=== PATIENT | male | born 1965 | race African-American/Black ===

== ENCOUNTER 2017-01-02 18:46 | Observation (INO) ==
[2017-01-02] MEDS ORDERED: Ondansetron 4 MG/2 ML VIAL IVP ONE (18:53)
--- NOTE | 2017-01-02 18:58 | Emergency Department Note ---
Disposition Clinical Impression: Cerebrovascular accident Qualifiers: CVA mechanism: unspecified Qualified Code(s): I63.9 - Cerebral infarction, unspecified Disposition: Admitted As Inpatient Condition: Undetermined Time of Disposition: 20:01 Neuro HPI - General Chief Complaint: ED Weakness Stated Complaint: Neuro Symptoms 2 hours ago Time Seen by Provider: 01/02/17 18:49 Source: patient Mode of arrival: ambulatory Limitations: no limitations Nursing Notes Reviewed: Yes Vital Signs Reviewed: Yes - History of Present Illness HPI Narrative: 51-year-old male with history of HIV on all of his medications as prescribed, hypertension, arrives to [facility] emergency department complaining of weakness on the left side and it started at 5 PM. The patient also states that there is some numbness associated with it. The patient states this started at 5 PM exactly. The patient denies any slurring words, confusion. The patient admits to a small amount of headache and nausea with this. The patient states that he thinks he had one of these in the past and was worked up at [facility] but denies any TPA or actual stroke. Onset of Symptoms Date: 01/02/17 Onset of Symptoms Time: 17:00 Symptom Onset Unknown: No Location: left face, left arm, left leg History of same: Yes Severity: mild Quality: weakness, numbness, tingling Symptoms Improving: No Improves with: none Worsens with: none Context: sudden onset On Anticoagulants: No Associated symptoms: Reports: nausea/vomiting Treatments Prior to Arrival: none - Related Data Allergies/Adverse Reactions: Allergies Allergy/AdvReac Type Severity Reaction Status Date / Time cephalexin Allergy Hives Verified 01/02/17 19:28 Sulfa (Sulfonamide Allergy Hives Verified 01/02/17 19:29 Antibiotics) sulfamethoxazole Allergy Hives Verified 01/02/17 19:27 [From Bactrim] trimethoprim [From Bactrim] Allergy Hives Verified 01/02/17 19:27 All systems ED: reviewed and negative except as stated. Constitutional: Reports: weakness. Denies: fever, chills, weight change Cardiovascular: Denies: chest pain, palpitations, dyspnea on exertion, edema, syncope Respiratory: Denies: cough, dyspnea, wheezes, hemoptysis, stridor Gastrointestinal: Reports: nausea. Denies: abdominal pain, vomiting, diarrhea, constipation, hematemesis, melena, hematochezia Genitourinary: Denies: urgency, dysuria, frequency, hematuria Musculoskeletal: Denies: back pain, neck pain, arthralgia, myalgia Integumentary: Denies: rash, abrasion, lesions Neurological: Reports: numbness. Denies: headache, weakness, paresthesias, confusion, abnormal gait, vertigo Past Medical History - Past Medical History Attestation: Yes The following information was validated with the patient. Source: patient Medical history: Reports: HIV/AIDS, hypertension Surgical history: Reports: non-contributory Psychiatric history: Reports: no psych history - Social History Smoking Status: Never smoker Alcohol use: Reports: none Drug use: Reports: none Physical Exam - General Limitations: no limitations General appearance: alert, in no apparent distress - Head Head exam: atraumatic, normocephalic, normal inspection - ENT ENT exam: normal exam, normal oropharynx, mucous membranes moist - Neck Neck exam: Present: normal inspection, full ROM, trachea midline - Chest Chest inspection: Present: normal inspection - Respiratory Respiratory exam: Present: normal lung sounds bilaterally - Cardiovascular Cardiovascular exam: Present: regular rate, normal rhythm, normal heart sounds - Abdominal Exam Abdominal exam: Present: soft, Non-Tender. Absent: tenderness, distention, guarding, rebound, rigidity - Extremities Exam Extremities exam: Present: normal inspection, full ROM. Absent: tenderness, pedal edema - Neurological Exam Neurological exam: Present: alert, oriented X3 - Expanded Neurological Exam Patient oriented to: Present: person, place, time Speech: Present: fluid speech Cranial nerves: EOM function (II, III, IV, ): Normal, facial sensation (V): Abnormal Left, facial palsy (VII): Abnormal Left, gag reflex (IX): Normal, spinal accessory function (XI): Normal, tongue deviation (XII): Normal Motor strength - LUE: 4/5 Motor strength - RUE: 5/5 Motor strength - LLE: 5/5 Motor strength - RLE: 5/5 Sensory exam upper extremity: light touch: Abnormal Left Sensory exam lower extremity: light touch: Abnormal Left Coma Scale Eye Opening: Spontaneous Coma Scale Motor Response: Obeys Commands Coma Scale Verbal Response: Oriented Coma Scale Total: 15 - Skin Skin exam: Present: warm, dry, intact, normal color Course Vital Signs Temperature 98.2 F 01/02/17 18:53 Pulse Rate 67 01/02/17 18:53 Respiratory Rate 16 01/02/17 18:53 Blood Pressure 167/113 01/02/17 18:53 O2 Sat by Pulse Oximetry 96 01/02/17 18:53 Temperature 98.2 F 01/02/17 18:53 Pulse Rate 68 01/02/17 19:38 Respiratory Rate 16 01/02/17 19:38 Blood Pressure 141/102 01/02/17 19:38 O2 Sat by Pulse Oximetry 97 01/02/17 19:38 Oxygen Delivery Oxygen Delivery Room Air Neuro Symptoms/Deficit - MDM Narrative Medical decision making narrative: After speaking with the neurologist at [facility], Dr. Faith, they felt as though a patient with an NIH of 2 and the current symptoms that he was not a TPA candidate. We currently agree as well as the patient agreeing. We will admit the patient here for further workup to include MRI and ultrasound of carotids. Patient agrees to plan. We will administer 325 mg aspirin as well as IV bolus. We will consult the hospitalist for admission to the hospital. Accepted by Dr. Hart - Lab Data Lab results reviewed: Yes I reviewed the patient's lab results. Result diagrams: 01/02/17 19:10 01/02/17 19:10 Lab Results 01/02/17 01/02/17 01/02/17 Range/Units 19:10 19:10 19:10 WBC 3.9 L (4.3-11.1) K/mcL RBC 5.30 (4.19-5.50) M/mcL Hgb 14.0 (12.9-16.9) g/dL Hct 40.2 (37.5-50.1) % MCV 75.8 L (83.0-100.0) fL MCH 26.4 L (28.0-33.3) pg MCHC 34.8 (31.6-35.5) g/dL RDW 13.5 (11.5-14.5) % Plt Count 130 L (140-400) K/mcL MPV 10.4 (9.4-12.4) fL Immature Gran % 0.3 (0-4) % Seg Neutrophils % 39.5 % Lymphocytes % 49.5 % Monocytes % 7.9 % Eosinophils % 2.3 % Basophils % 0.5 % Neutrophils # 1.6 (1.6-8.9) K/mcL Lymphocytes # 2.0 (0.6-4.6) K/mcL Monocytes # 0.3 (0.0-1.3) K/mcL Eosinophils # 0.1 (0.0-0.6) K/mcL Basophils # 0.0 (0.0-0.2) K/mcL PT 11.7 (9.4-12.1) Seconds INR 1.1 APTT 25.7 L (26.0-36.0) Seconds Sodium 139 (136-145) mEq/L Potassium 3.4 L (3.5-4.5) mEq/L Chloride 104 (98-109) mEq/L Carbon Dioxide 22 (19-29) mEq/L BUN 18 (8-26) mg/dL Creatinine 1.43 H (0.72-1.25) mg/dL Est GFR ( Amer) > 60 (> 60) Est GFR (Non-Af Amer) 52 L (> 60) BUN/Creatinine Ratio 13 (6-26) Glucose 137 H (70-99) mg/dL Calculated Osmolality 292 (280-300) Calcium 8.9 (8.6-10.8) mg/dL Troponin I (0-0.03) ng/mL 01/02/17 Range/Units 19:10 WBC (4.3-11.1) K/mcL RBC (4.19-5.50) M/mcL Hgb (12.9-16.9) g/dL Hct (37.5-50.1) % MCV (83.0-100.0) fL MCH (28.0-33.3) pg MCHC (31.6-35.5) g/dL RDW (11.5-14.5) % Plt Count (140-400) K/mcL MPV (9.4-12.4) fL Immature Gran % (0-4) % Seg Neutrophils % % Lymphocytes % % Monocytes % % Eosinophils % % Basophils % % Neutrophils # (1.6-8.9) K/mcL Lymphocytes # (0.6-4.6) K/mcL Monocytes # (0.0-1.3) K/mcL Eosinophils # (0.0-0.6) K/mcL Basophils # (0.0-0.2) K/mcL PT (9.4-12.1) Seconds INR APTT (26.0-36.0) Seconds Sodium (136-145) mEq/L Potassium (3.5-4.5) mEq/L Chloride (98-109) mEq/L Carbon Dioxide (19-29) mEq/L BUN (8-26) mg/dL Creatinine (0.72-1.25) mg/dL Est GFR ( Amer) (> 60) Est GFR (Non-Af Amer) (> 60) BUN/Creatinine Ratio (6-26) Glucose (70-99) mg/dL Calculated Osmolality (280-300) Calcium (8.6-10.8) mg/dL Troponin I 0.02 (0-0.03) ng/mL - Radiology Data Radiology results reviewed: Yes I reviewed the patient's radiology results. - EKG Data EKG attestation: Yes I reviewed and interpreted this EKG. EKG results narrative: Heart rate 63 bpm. DC interval 195 ms. QTc 422 ms. Left axis deviation. Normal sinus rhythm. No ST elevation or ST depression noted. No acute changes noted on EKG. No previous EKG. NIH Stroke Scale - Level of Consciousness LOC: Alert - LOC Questions LOC Questions: Answers both correctly - LOC Commands LOC Commands: Performs both correctly - Best Gaze Best Gaze: Normal - Visual Visual: No visual loss - Facial Palsy Facial Palsy: Minor asymmetry on smiling, flattened nasolabial fold - Motor Arms Motor Arm-Left: No drift for 10 seconds Motor Arm-Right: No drift for 10 seconds - Motor Legs Motor Leg-Left: No drift for 5 seconds Motor Leg-Right: No drift for 5 seconds - Limb Ataxia Limb Ataxia: Normal, No Ataxia - Sensory Sensory: Mild to moderate loss, "not as sharp" - Best Language Best Language: No aphasia - Dysarthria Dysarthria: Normal - Extinction and Inattention Extinction and Inattention: Normal - NIHSS Total Score NIHSS Total Score: 2 Critical Care Time Critical Care Time: Yes Total Critical Care Time: 35 Attestation: Current care time managing patient was 35 minutes. Attestation Statement - Attestation Attestation: Patient was seen with resident physician. I reviewed the history, physical, assessment and plan, and agree with the findings. I also personally evaluated this patient and had [id number] time with this patient. 51-year-old male presents to the emergency department with acute strokelike symptoms starting at 5 PM approximately 2 hours prior to presentation. Patient was at a local fun center with some family members when he noticed decreased strength in the left side as well as left facial droop. Patient did not have paralysis but decreased strength in left upper lower extremity and left side of face. Patient had similar symptoms in June and had a thorough stroke workup all of which she states was negative. Denies loss of consciousness or other complaints at this time. No chest pain or short of breath. We will examination vital signs are stable. ENT pupils equal and reactive there is slight droop of the left face. Heart regular rate. Lungs normal. Abdomen soft nontender. Extremity is unremarkable. Neurologically alert and oriented with decreased strength left upper and lower extremity good speech but slight decrease in mobility left side of the face. Please see resident documentation of an age scale. ED course. Stroke alert was called. CT scan was obtained and workup was done. CT did not reveal acute abnormality. Remainder of workup was unremarkable. Hemodynamically remained stable while in the emergency department. We did contact the neurologist as part of our stroke workup and protocol. They agreed that TPA was not indicated at this time. NIH score was 2. We will admit to our hospitalist service for further evaluation and treatment. Critical care time 35 minutes. Agree with resident physician assessment and plan.
[2017-01-02 19:25] LABS: Basophils % 0.5 %; Eosinophils # 0.1 K/mcL (0.0-0.6); Eosinophils % 2.3 %; Hematocrit 40.2 % (37.5-50.1); Immature Granulocytes % 0.3 % (0-4); Lymphocytes % 49.5 %; Mean Corpuscular HGB Conc 34.8 g/dL (31.6-35.5); Mean Corpuscular Hemoglobin 26.4 pg (28.0-33.3); Mean Corpuscular Volume 75.8 fL (83.0-100.0); Mean Platelet Volume 10.4 fL (9.4-12.4); Monocytes # 0.3 K/mcL (0.0-1.3); Monocytes % 7.9 %; Neutrophils # 1.6 K/mcL (1.6-8.9); Red Cell Distribution Width 13.5 % (11.5-14.5); Segmented Neutrophils % 39.5 %
[2017-01-02 19:27] LABS: Platelet Count 130 K/mcL (140-400)
[2017-01-02 19:30] LABS: INR 1.1; Prothrombin Time 11.7 Seconds (9.4-12.1)
[2017-01-02 19:33] LABS: Activated Partial Thrombo Time 25.7 Seconds (26.0-36.0)
[2017-01-02 19:37] LABS: BUN/Creatinine Ratio 13 (6-26); Blood Urea Nitrogen 18 mg/dL (8-26); Calcium 8.9 mg/dL (8.6-10.8); Carbon Dioxide 22 mEq/L (19-29); Chloride 104 mEq/L (98-109); Glucose 137 mg/dL (70-99); Osmolality,Calculated 292 (280-300); Potassium 3.4 mEq/L (3.5-4.5); Sodium 139 mEq/L (136-145); eGFR For African Americans > 60 (> 60); eGFR For Non-African Americans 52 (> 60)
[2017-01-02] MEDS ORDERED: Aspirin 325 MG TABLET PO ONE (19:48)
[2017-01-02] MEDS ORDERED: 0.9 % Sodium Chloride 1,000 ML IVC ONE (19:48)
[2017-01-02] MEDS ORDERED: Naloxone 0.4 MG/ML INJ IVP PRN (20:44)
[2017-01-02] MEDS ORDERED: Acetaminophen 325 MG TABLET PO PRN (20:44)
[2017-01-02] MEDS ORDERED: Ondansetron 4 MG/2 ML VIAL IVP PRN (20:44)
--- NOTE | 2017-01-02 20:57 | Internal Med History&Physical ---
Date of Encounter: 01/02/17 Time of Encounter: 20:20 Assessment and Plan (1) Cerebrovascular accident Current visit: Yes Status: Suspected Patient has sudden onset left-sided weakness and numbness associated with some difficulty speaking. The symptoms are gradually getting better. Code stroke was called and emergency department. After consulting with [facility] neurology, the patient was not felt to be a candidate for TPA. On exam, he has 5/5 power in all 4 extremities and does not appear to have any cranial abnormalities. Suspect TIA versus CVA. Will obtain MRI of the brain. Patient will be placed under observation on telemetry. Will also obtain an echocardiogram with agitated saline. Will obtain records from [facility] regarding his admission in June 2016. Fasting lipid panel. Patient does not take aspirin at home. He will be started on the same. Qualifiers: CVA mechanism: unspecified Qualified Code(s): I63.9 - Cerebral infarction, unspecified (2) HTN (hypertension) Current visit: Yes Status: Chronic Patient has borderline elevated blood pressure. Possible acute CVA. Will allow permissive hypertension. If his MRI is negative for stroke, his home medication of hydrochlorothiazide will be resumed. Qualifiers: Hypertension type: essential hypertension Qualified Code(s): I10 - Essential (primary) hypertension (3) HIV disease Current visit: Yes Status: Chronic Resume medications. Internal Medicine - H&P: HPI Chief complaint: Numbness and weakness on the left side of the body Admitted From: Emergency Dept Plans for Post Hospital Care: Home History of present illness: Mr. Arriaga is a 51 year old male with a history of hypertension who presents to the emergency department due to numbness and weakness. Patient states that at about 5 PM he started experiencing weakness in his left arm and left leg associated with numbness in the left side of his body. He also reports that he had some difficulty getting words out. He denies any difficulty swallowing. He was walking at the time and he also felt lightheaded and had to sit down immediately. He was also nausea with it. He denies any chest pain, shortness of breath, vomiting, diarrhea, constipation or abdominal pain. He does report intermittent palpitations. He denies any swelling in his legs. He denies any fever or chills or sick contacts recently. He denies any recent travel history. He states that he had similar episodes around [place] time last year and was admitted in ICU and had workup including MRI and echocardiogram. He does report a history of migraines but denies having had a headache with these symptoms today. He denies any changes in his vision including double vision or blurry vision. Past Med Surg Social Fam HX - Past Medical History Attestation: Yes The following information was validated with the patient. Source: patient Medical history: HIV/AIDS, hypertension Psychiatric history: no psych history - Past Surgical History Surgical History: non-contributory - Social History Smoking Status: Never smoker Smokeless Tobacco Status: No Alcohol use: none Drug use: none Current living situation: Home, With Family Activity Level: Independent ambulation, Very active Recent Out of Country Travel Within the Last 8 Weeks: No Exposure or Possible Exposure to Illness During Travel: No - Family History Father Hx Family Cancer: Yes Internal Medicine - H&P: Meds Allergies cephalexin Allergy (Verified 01/02/17 19:28) Hives Sulfa (Sulfonamide Antibiotics) Allergy (Verified 01/02/17 19:29) Hives sulfamethoxazole [From Bactrim] Allergy (Verified 01/02/17 19:27) Hives trimethoprim [From Bactrim] Allergy (Verified 01/02/17 19:27) Hives All Systems PM: A 10-system review of systems was performed and is negative for pertinent findings except as documented above in the HPI. Review of systems: 10 systems have been reviewed and are negative except as mentioned in the history of present illness - Constitutional Vitals: Temp Pulse Resp BP Pulse Ox 98.2 F 68 16 141/102 97 01/02/17 18:53 01/02/17 19:38 01/02/17 19:38 01/02/17 19:38 01/02/17 19:38 Exam: Gen.: Lying in bed. No acute distress. Eyes: Pupils equal, round and reactive to light. Extraocular muscles intact. ENT: Moist mucous membranes. No oropharyngeal erythema or discharge. Chest: Clear to auscultation bilaterally. No adventitious sounds present. CVS: First and second heart sounds present. No murmurs, rubs or gallops. Abdomen: Soft, nontender, nondistended. Bowel sounds present. No hepatosplenomegaly. Skin: No decubitus ulcers appreciated. 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 Power 5/5 in all 4 extremities. No sensory modalities. Psychiatric: Alert, awake and oriented to time, place and person. Lymphatic system: No lymphadenopathy appreciated Internal Med - H&P Results - Labs CBC & Chem 7: 01/02/17 19:10 01/02/17 19:10 - EKG Data -: EKG Interpreted by Myself EKG shows normal: sinus rhythm, axis (Left axis deviation) Rate: normal - EKG Data Prior EKG available for review: no - Diagnostic Studies CT scan - head Status: image reviewed by me (No acute hemorrhage detected)
[2017-01-03 04:19] LABS: Basophils % 0.6 %; Eosinophils # 0.1 K/mcL (0.0-0.6); Eosinophils % 3.4 %; Hematocrit 37.8 % (37.5-50.1); Hemoglobin 13.1 g/dL (12.9-16.9); Immature Granulocytes % 0.3 % (0-4); Lymphocytes # 2.1 K/mcL (0.6-4.6); Lymphocytes % 60.1 %; Mean Corpuscular HGB Conc 34.7 g/dL (31.6-35.5); Mean Corpuscular Hemoglobin 26.2 pg (28.0-33.3); Mean Corpuscular Volume 75.6 fL (83.0-100.0); Monocytes # 0.4 K/mcL (0.0-1.3); Monocytes % 12.1 %; Neutrophils # 0.8 K/mcL (1.6-8.9); Platelet Count 136 K/mcL (140-400); Red Cell Distribution Width 13.5 % (11.5-14.5); Segmented Neutrophils % 23.5 %
[2017-01-03 04:31] LABS: BUN/Creatinine Ratio 15 (6-26); Blood Urea Nitrogen 18 mg/dL (8-26); Carbon Dioxide 23 mEq/L (19-29); Chloride 106 mEq/L (98-109); Potassium 3.7 mEq/L (3.5-4.5); Sodium 139 mEq/L (136-145)
[2017-01-03 04:32] LABS: Alanine Aminotransferase 30 Units/L (0-55); Albumin 3.2 g/dL (3.5-5.0); Albumin/Globulin Ratio 0.9 (1.1-2.2); Alkaline Phosphatase 53 Units/L (38-126); Aspartate Amino Transferase 26 Units/L (5-34); Bilirubin,Total 0.6 mg/dL (0.2-1.2); Calcium 8.5 mg/dL (8.6-10.8); Chol/HDL Ratio 5.2 (0-4.9); Cholesterol 188 mg/dL (< 200); Globulin 3.7 g/dL (2.4-3.5); Glucose 89 mg/dL (70-99); HDL Cholesterol 36 mg/dL (40-59); LDL Cholesterol,Calculated 124 mg/dL (0-99); Osmolality,Calculated 289 (280-300); Total Protein 6.9 g/dL (6.0-8.3); Triglycerides 142 mg/dL (< 150); eGFR For African Americans > 60 (> 60); eGFR For Non-African Americans > 60 (> 60)
[2017-01-03] MEDS: Magic Mouthwash 10 ML UD Cup PO SCH ×3 (05:00→13:05)
--- NOTE | 2017-01-03 08:12 | Internal Med Progress Note ---
Date of Encounter: 01/03/17 Time of Encounter: 08:11 - Assessment and plan (1) Cerebrovascular accident Current Visit: Yes Status: Suspected Assessment and plan: Admitted with left-sided weakness with difficulty in speaking Was evaluated by emergency room and stroke code was called. [facility] neurology department consulted via telemedicine No tPA was recommended CT head: Negative for hemorrhage/stroke. Plan: Aspirin/Lipitor MRI brain Echocardiogram Ultrasound carotids PT/OT consult Close observation Patient had a similar symptom in June 2016 and his workup was done in [facility]. Today being the Wednesday, it is very difficult to get all that paperwork. 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 Qualifiers: CVA mechanism: unspecified Qualified Code(s): I63.9 - Cerebral infarction, unspecified (2) HTN (hypertension) Current Visit: Yes Status: Chronic Assessment and plan: Resumed his home medication and patient's blood pressure is getting better. 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 Patient's last CD4 count in October 2016: 157, at this point patient had a Campylobacter infection. Patient's last viral load: Undetectable I have informed about infectious diseases specialist that this patient needs early follow-up with his primary infectious disease doctor who is managing his retroviral disease. We have called [facility] pharmacy and awaiting for medications list. (4) DVT prophylaxis Current Visit: Yes Status: Acute Assessment and plan: DVT prophylaxis: Lovenox Decision-making: This patient has a moderate to severe risk of worsening in spite of being on appropriate medication, due to secondary immunocompromise underlying status. - Subjective Interval history: Seen and examined. Chart reviewed. Patient is comfortably lying in the bed. Patient denies any chest pain, shortness of breath, dizziness, blurring of vision, nausea, vomiting, abdominal pain or diarrhea. - Constitutional Vitals: Temp Pulse Resp BP Pulse Ox 97.9 F 60 15 141/97 97 01/03/17 06:53 01/03/17 06:53 01/03/17 06:53 01/03/17 06:53 01/03/17 06:53 General appearance: Present: A&O X 3, pleasant, no acute distress, answers questions appropriately - Head Head exam: Present: atraumatic, normocephalic - Eye Eye exam: Present: PERRL, conjuntiva pink, sclera anicteric Pupils: Present: PERRL - Neck Neck exam general surgery: Present: supple, trachea midline. Absent: lymphadenopathy - Respiratory Respiratory exam: Present: CTAB. Absent: accessory muscle use, rales, rhonchi, wheezes - Cardiovascular Cardiovascular exam: Present: RRR, +S1, +S2. Absent: diastolic murmur, gallop, rubs, systolic murmur - GI/Abdominal GI/Abdominal exam: Present: normal bowel sounds, soft, no peritoneal signs. Absent: distended, tenderness - Extremities Exam Extremities exam: Present: warm, radial pulses palpable and symetrical. Absent : calf tenderness, cyanotic, pedal edema - Neurological Exam Neurological exam: Present: CN II-XII intact, oriented X3, no focal deficits. Absent: pronater drift, facial droop, speech deficit - Skin Skin exam: Present: dry, intact Internal Medicine: Result - Labs CBC & Chem 7: 01/03/17 03:58 01/03/17 03:58 Labs: Short CBC 01/03/17 Range/Units 03:58 WBC 3.5 L (4.3-11.1) K/mcL Hgb 13.1 (12.9-16.9) g/dL Hct 37.8 (37.5-50.1) % Plt Count 136 L (140-400) K/mcL Neutrophils # 0.8 L (1.6-8.9) K/mcL BMP 01/03/17 03:58 Sodium 139 Potassium 3.7 Chloride 106 Carbon Dioxide 23 BUN 18 Creatinine 1.18 Glucose 89 Calcium 8.5 L Cardiac Enzymes 01/02/17 01/03/17 Range/Units 21:01 03:58 Troponin I 0.02 0.02 (0-0.03) ng/mL Liver Function 01/03/17 Range/Units 03:58 Total Bilirubin 0.6 (0.2-1.2) mg/dL AST 26 (5-34) Units/L ALT 30 (0-55) Units/L Alkaline Phosphatase 53 (38-126) Units/L Albumin 3.2 L (3.5-5.0) g/dL - ABG Interpretation ABG results: PT/INR, D-dimer PT 11.7 Seconds (9.4-12.1) 01/02/17 19:10 Consult Discharge Plan - Plan Referrals: NO,PCP [Primary Care Provider] -
[2017-01-03] MEDS ORDERED: Aspirin Enteric Coated 81 MG Tablet PO SCH (09:00)
[2017-01-03 17:11] VITALS: BP 153/102
--- NOTE | 2017-01-03 17:40 | Discharge Summary ---
Date of Encounter: 01/03/17 Time of Encounter: 17:36 - Discharge Diagnosis (1) Cerebrovascular accident Priority: Primary Status: Suspected Qualifiers: CVA mechanism: unspecified Qualified Code(s): I63.9 - Cerebral infarction, unspecified (2) HTN (hypertension) Priority: Secondary Status: Chronic Qualifiers: Hypertension type: essential hypertension Qualified Code(s): I10 - Essential (primary) hypertension (3) HIV disease Priority: Secondary Status: Chronic (4) DVT prophylaxis Priority: Secondary Status: Acute - Discharge Medications Prescriptions: Aspirin Enteric Coated [Aspirin EC] 81 mg PO DAILY #30 tablet. [place] Medications: Aspirin Enteric Coated [Aspirin EC] 81 mg PO DAILY #30 tablet. 01/03/17 [Rx] Atorvastatin [Lipitor] 10 mg PO HS 01/03/17 [History] Dapsone 100 mg PO DAILY 01/03/17 [History] Darunavir Ethanolate [Prezista] 600 mg PO BID 01/03/17 [History] Dolutegravir Sodium [Tivicay] 50 mg PO BID 01/03/17 [History] Etravirine [Intelence] 200 mg PO BID 01/03/17 [History] Fluconazole [Diflucan] 400 mg PO DAILY 01/03/17 [History] Fluconazole [Diflucan] 400 mg PO DAILY 01/03/17 [History] Gabapentin [Neurontin] 300 mg PO BID 01/03/17 [History] Gabapentin [Neurontin] 300 mg PO TID 01/03/17 [History] Promethazine [Phenergan] 25 mg PO Q6HR PRN 01/03/17 [History] Ritonavir [Norvir] 100 mg PO BID 01/03/17 [History] Trazodone HCl 50 mg PO HS PRN 01/03/17 [History] hydroCHLOROthiazide [Hydrochlorothiazide] 25 mg PO DAILY 01/03/17 [History] Allergies/Adverse Reactions: Allergies cephalexin Allergy (Verified 01/02/17 19:28) Hives Sulfa (Sulfonamide Antibiotics) Allergy (Verified 01/02/17 19:29) Hives sulfamethoxazole [From Bactrim] Allergy (Verified 01/02/17 19:27) Hives trimethoprim [From Bactrim] Allergy (Verified 01/02/17 19:27) Hives Procedures/tests Complete & Pending: Procedures Performed prior 72 hours Category Date Time Status MR head/brain wo con [MR] Routine MRI 01/02/17 20:46 Ordered EV carotid duplex imaging BI Routine Y 01/03/17 07:24 Completed EV echocardiogram Routine Y 01/03/17 20:46 Completed Date of admission: 01/02/17 20:26 Primary care physician: PCP NO Consults: 01/03/17 07:25 Consult to Physical Therapy [CONS] Routine Comment: Evaluate, develop and implement POC Reason for Consult: TIA/CVA 01/03/17 07:26 Consult to Occupational Therapy [CONS] Routine Comment: Evaluate, develop and implement POC Reason for Consult: TIA/CVA Discharging clinician: Grover Willingham - Patient Status Disposition: Left Against Medical Advice Condition: Fair Functional capacity at discharge: independent ambulation Overall status at discharge: other - Discharge Instructions Follow Up With: NO,PCP [Primary Care Provider] - Forms: ED Satisfaction Letter - Diet and Activity Activity: as per physical therapy Diet: low fat, low cholesterol Interval History: 51-year-old male with history of hypertension presented to emergency department for numbness and weakness. Patient states that it was started 5 PM and the weakness and numbness was in his left arm and left leg associated with the slurring of speech. He also reports that the left side of the body was weak. Patient denies any difficulty of swallowing. patient was evaluated in the emergency room and stroke alert was called. [facility] Department of neurology evaluated the patient via telemedicine. They recommended no TPA. Patient was admitted to hospitalist service for further evaluation Hospital course: Patient was admitted for the diagnosis of possible TIA CVA and routine protocol was followed up. Patient was previously hospitalized in June 2016 at [facility] for similar symptoms. No records available and will not be possible to get as this is a weekend. Patient is a background history of for retroviral disease. I spoke to the infectious disease Dr Jeronimo was chemical dependency professional for the practice where patient follows for his retroviral disease. Patient's last CD4 count in October 2016: 157, at this point patient had a Campylobacter infection. Patient's last viral load: Undetectable I have informed about infectious diseases specialist that this patient needs early follow-up with his primary infectious disease doctor who is managing his retroviral disease. We have called [facility] and awaiting for medications list. His home medications were updated. Ultrasound carotid and echocardiogram was done. MRI of the brain is pending. Patient called nurse and asked to see me. Myself, charge nurse Ms Ivy and patient's nurse RN Nicole went to his room and explained him at length importance of staying in the hospital and get the workup done. Patient insisted that we should discharge him as he has to take his medications at home. I promised patient that we can give him his medications (which are listed as a home medication) here in this hospital. Pending the workup at this point is MRI of the brain ( depending on MRI results , possible neurology consult), PT/OT evaluation. Patient insisted that he needs to go home and claims that he did not receive any medication since he was hospitalized. Patient is aware of the risk going against medical advise. Patient understood the risk of another stroke, heart attack or other TIA/CVA. Patient refused to sign AMA papers. Patient refused to take his prescriptions. I will call tomorrow his infectious disease specialist again and remind him to see this patient as early as possible. - Time Spent with Patient Total time spent providing and/or coordinating discharge services: - Constitutional Vitals: Temp Pulse Resp BP Pulse Ox 97.9 F 71 16 153/102 92 01/03/17 06:53 01/03/17 16:00 01/03/17 16:00 01/03/17 16:00 01/03/17 16:00 General appearance: Present: A&O X 3, pleasant, no acute distress, answers questions appropriately Exam: Patient did not allow me to examine me
[2017-01-04] MEDS ORDERED: *HR* Enoxaparin 30 MG/0.3 ML SYRINGE SQ SCH (06:00)
--- NOTE | 2017-01-04 15:54 | Carotid Imaging Report ---
Carotid Duplex Patient Name:Celestine Arriaga Order Number:[id number] Procedure Date:01/03/2017 Date:1965Age:51 yrs Gender:Male Lt BP:141 / 97 mmHg Rt.BP:141 / 97 mmHgHeart Rate: Location:[facility] Room #: 2NE26 Outside Sales Representative:Jazmin Morrison Referring MD:Jesús Hernandez MD senior drupal developer:None Reading MD:Charles Land MD Primary Indications:TIA/CVA Risk Factors Yes/No Hypertension Hypercholesterolemia Smoker Previous Impressions: The right internal carotid artery has a 40-59% stenosis. The left carotid artery is normal throughout. Recommendations: Risk factor reduction. Follow-up carotid duplex in 1 year. Findings Carotid Duplex: Right: There is 40-59% stenosis in the right proximal internal carotid artery. There is smooth homogeneous plaque. Prior Study: No prior study available for comparison. Carotid Results Right PSV EDV Assessment Proximal CCA 136 29 Normal Mid CCA 96 26 Normal Distal CCA 89 25 Normal Bifurcation 82 20 Normal Proximal ICA 145 37 40-59% stenosis Mid ICA 54 26 Normal Distal ICA 90 44 Normal ECA 114 22 Normal Vertebral Artery 41 15 Antegrade Flow Left PSV EDV Assessment Proximal CCA 134 34 Normal Mid CCA 100 28 Normal Distal CCA 94 29 Normal Bifurcation 64 20 Normal Proximal ICA 94 40 Mid ICA 79 37 Distal ICA 70 31 ECA 95 15 Vertebral Artery 64 28 Antegrade Flow Ratio's Right ICA/CCA Ratio: 1.51 ICA/CCA Values: 145/96 Left ICA/CCA Ratio: 0.94 ICA/CCA Values: 94/100 Updated by Charles Land MD on 01/04/2017 3:47:53 PM electronically signed on 01/04/2017 3:48:18 PM with status of Final
== END 2017-01-03 17:44 | disposition left against medical advice (07) ==
LOC: EMEROO 18:46 → 2NENU 18:46
PROVIDERS: ADMIT Internal Medicine Sleep Medicine; ATTEND Internal Medicine